=== PATIENT | female | born 1970 | race Caucasian/White ===

== ENCOUNTER 2024-09-09 13:00 | Emergency (ER) | payer SELFPAY ==
[~2024-09-09] VITALS: Ht 165.1 cm; Wt 72.6 kg
[2024-09-09 13:17] VITALS: PULSE 100; RESP 18; TEMP 97.9
[2024-09-09] MEDS: CYCLOBENZAPRINE HCL 10 MG TAB PO ONE (14:40)
[2024-09-09] MEDS: KETOROLAC TROMETHAMINE 60 MG/2 ML VIAL IM ONE (14:41)
[2024-09-09] MEDS ORDERED: CYCLOBENZAPRINE10 MG PO (14:51)
[2024-09-09 15:08] VITALS: BP 131/77; PULSE 89; RESP 18; O2SAT 100
== END 2024-09-09 15:09 | disposition home or self-care (01) ==
LOC: ER 13:06
DX: M54.50 Low back pain, unspecified (principal); G89.29 Other chronic pain; R20.0 Anesthesia of skin; J45.909 Unspecified asthma, uncomplicated; G40.909 Epilepsy, unspecified, not intractable, without status epilepticus; F41.9 Anxiety disorder, unspecified; F17.210 Nicotine dependence, cigarettes, uncomplicated
CPT/HCPCS: 99282; J1885